=== PATIENT | male | born 1970 | race Hispanic/Latino ===

== ENCOUNTER 2022-07-11 09:52 | Emergency (ER) | payer OTHER ==
[~2022-07-11] VITALS: Ht 167.6 cm; Wt 100.0 kg
[2022-07-11] MEDS ORDERED: KEFLEX500 MG PO (12:38)
[2022-07-11 12:45] VITALS: BP 130/67
[2022-07-11] MEDS ORDERED: NAPROXEN500 MG PO (12:50)
== END 2022-07-11 12:55 | disposition home or self-care (01) | DRG 603 ==
LOC: ED 09:52
DX: L03.113 Cellulitis of right upper limb (principal); S69.91XA Unspecified injury of right wrist, hand and finger(s), initial encounter; X58.XXXA Exposure to other specified factors, initial encounter; Y93.89 Activity, other specified; Y92.74 Orchard as the place of occurrence of the external cause; Y99.0 Civilian activity done for income or pay